=== PATIENT | female | born 1995 | race Caucasian/White ===

== ENCOUNTER → 2017-06-17 17:00 | Outpatient (CLI) | payer MEDICAID, SELFPAY ==
[2017-06-17 20:17] LABS: Group B Strep DNA By PCR POSITIVE (Negative); Probe Check PASS
== END ==
PROVIDERS: Visit Provider Obstetrics & Gynecology
DX: Z36.85 Encounter for antenatal screening for Streptococcus B (principal)
CPT/HCPCS: 87653

== ENCOUNTER → 2017-08-17 11:30 | Outpatient (CLI) | payer MEDICAID, SELFPAY ==
[2017-08-19 17:20] LABS: HPV Reflexed? NOT INDICATED
== END ==
PROVIDERS: Family Provider Family Medicine; PCP Family Medicine; Visit Provider Obstetrics & Gynecology
DX: Z12.4 Encounter for screening for malignant neoplasm of cervix (principal)
CPT/HCPCS: 88175; G0145

== ENCOUNTER 2020-03-28 22:04 | Emergency (ER) | payer OTHER, SELFPAY ==
[2020-03-28 22:05] VITALS: BP 126/52; PULSE 90; RESP 16; TEMP 36.6; O2SAT 95; BMI 20.9
--- NOTE | 2020-03-28 22:23 | ED.DCSUM_ITS ---
History of Present Illness Chief Complaint: Shortness of Breath Informant: Patient Onset: Days Context: Sudden Onset Timing: Continuous, Waxes and wanes Quality: Midsternal chest discomfort and wheezing/shortness of breath Location: Cardiac and respiratory Current Severity: Mild Maximum Severity: Moderate Worsened by: Activity Makes the shortness of breath worse Relieved by: Nothing Associated Symptoms: Mucous nasal drainage and cough productive of white-colored sputum Narrative: Patient is a 25-year-old woman who recently started work as an [employer]. She presents with nasal congestion, mucus drainage, productive cough of white- colored sputum and wheezing. She also reports shortness of breath. She does report midsternal chest pain described as pain. There is no radiation. Is no associated symptoms. There is no alleviating or exacerbating factors. There is no history of VTE. She denies leg pain, swelling discoloration. She denies rash. She denies GI symptoms. She denies headache. She denies visual, ocular auditory symptoms. Prior similar symptoms: No Recent Illness/Hospitalization: No - Past Medical History (1) History of bronchospasm Status: Resolved Past Medical History - Allergies and Home Meds Allergies/Adverse Reactions: Allergies Penicillins [PCN] Adverse Reaction (Verified 03/28/20 22:08) [facility] Primary Care Physician: Raphael Melgar DO [COURTESY STAFF PHYSICIAN] - Prior records reviewed: Yes Surgical History: no surgical history Lives: With Family Smoking Status: Former smoker Alcohol: None Drugs: None Review of Systems General: Denies: Chills, Fever, Malaise, Sweats Eyes: Denies: Visual changes - bilaterally, Blurred Vision - bilaterally ENT: Reports: Rhinorrhea, - - No change or loss of taste or smell. Denies: Bilateral ear pain, Sore throat Cardiovascular: Reports: Chest pain. Denies: Palpitations, Heart racing Respiratory: Reports: Dyspnea, Cough, Sputum, - - Patient reports wheezing. Denies: Dyspnea on exertion, Orthopnea, Paroxysmal nocturnal dyspnea Gastrointestinal: Denies: Abdominal pain, Nausea, Vomiting, Diarrhea, Melena, Hematochezia Genitourinary: Denies: Dysuria, Hematuria, Frequency Musculoskeletal: Denies: Myalgias, Arthralgias, Neck pain, Back pain, Swelling, Extremity Pain, -, - Skin: Denies: Rash, Wounds Neurological: Denies: Headache, Weakness, Parasthesia, Numbness Hematologic: Denies: Easy bruising, Easy bleeding Allergy: Denies: Uticaria Physical Exam Vital Signs/Narrative: Vital Signs Temp Pulse Resp BP Pulse Ox 03/28/20 22:05 97.8 F 90 16 126/52 H 95 Inital Vital Signs reviewed: Yes General: Well nourished, Well developed, Obese, No Acute Distress Head: Normocephalic, Atraumatic Eyes: Perrl, EOMI. Negative for: Pale conjunctiva, Scleral icterus Neck: Supple, Nontender, No lymphadenopathy, No JVD Cardiovascular: Regular rate, Regular rhythm, No murmurs, Normal S1, Normal S2 Respiratory: No distress, Chest nontender, Wheezing, - - There is increased expiratory phase.. Negative for: CTA bilaterally Back: Nontender, Normal Inspection Extremities: Nontender, No edema Skin: Normal color, No rash Neurological: Alert, Oriented x3, Cranial nerves II-XII grossly intact, Normal Strength, Normal Sensation Psychological: Normal affect, Normal Mood Diagnostic/Tx/Re-eval Chest X-Ray - ED: 1 View, Read by ED Physician, Normal, Heart, Lungs, Mediastinum, Bony Structures, No Acute Disease, - - X-ray was interpreted by me at 2258. 03/28/20 22:21 Chest 1 View (Portable) [RAD] Stat - Medical Decision Making Patient presents with viral upper respiratory symptoms. This may represent, cold, rhinovirus, COVID-19 and possibly allergies. Chest x-ray was obtained and she was instructed on the use of a metered-dose inhaler. She received 6 puffs. She was tested for COVID-19. Patient was reassessed at 2325. She states she feels better. She no longer has wheezing. She was informed that her chest x-ray was interpreted by me as negative. She has symptoms with a viral infection. She was discharged with MDI and appropriate home-going instructions ED Disposition - Plan for ED Patient: Disposition: Home or Assisted Living Diagnosis: Acute bronchitis with bronchospasm, Suspected COVID-19 virus infection Instructions: ED Upper Resp Infec No Abx Tx Referrals: Raphael Melgar DO [COURTESY STAFF PHYSICIAN] - Additional Instructions: 2 puffs of inhaler every 2-4 hours while awake for the next 2 to 3 days then every 4-6 hours as needed for wheezing Self quarantine until you receive your Covid test results.
[2020-03-28 22:47] VITALS: PULSE 81; RESP 16; O2SAT 97
--- NOTE | 2020-03-28 22:50 | RAD_ITS ---
STUDY: X-RAY CHEST REASON FOR EXAM: Female, 25 years old. SOB/ chest tightness x 3 days. wheezy when walking. TECHNIQUE: Single AP portable view of the chest. COMPARISON: None. FINDINGS: There are no confluent pulmonary infiltrates. There is no demonstrated pleural abnormality. Normal size heart. Normal mediastinum and maura. Normal visualized aortic arch and descending thoracic aorta. There are no demonstrated acute fractures or destructive bone lesions. There is no demonstrated abnormality of the visualized soft tissue structures of the upper abdomen. RAD/Chest 1 View (Portable) IMPRESSION: Normal x-ray examination of the chest. Electronically Signed: Gerry Shelton MD at 0:23 EST , Service support ,
[2020-03-29 00:05] VITALS: PULSE 90; RESP 20; O2SAT 99
== END 2020-03-29 00:33 | disposition home or self-care (01) ==
PROVIDERS: Emergency Provider Emergency Medicine
DX: J20.9 Acute bronchitis, unspecified (principal); E66.9 Obesity, unspecified; Z68.20 Body mass index [BMI] 20.0-20.9, adult; Z87.891 Personal history of nicotine dependence
CPT/HCPCS: 71045; 87635; 99283; U0003

== ENCOUNTER → 2020-11-05 10:17 | Outpatient (CLI) | payer OTHER, SELFPAY ==
[2020-11-05 09:06] VITALS: BMI 29.4
[2020-11-05 11:45] LABS: Absolute Lymphocyte Count 1.25 X10^3/uL (0.83-4.51); Absolute Neutrophil Count 3.2 X10^3/uL (2.0-7.7); Basophil# 0.01 X10^3/uL; Basophil% 0.2 % (0-1); Eosinophil# 0.39 X10^3/uL; Eosinophils% 7.1 % (0-5); Hematocrit 39.5 % (37-47); Hemoglobin 13.1 g/dL (12.0-15.0); Lymphocyte # 1.25 X10^3/ul (0.83-4.51); Lymphocyte % 22.9 % (19-41); Mean Corp Hgb Conc 33.2 g/dL (32-36); Mean Corpuscular Hgb 29.8 pg (27.0-32.0); Mean Platelet Vol. 10.8 fl (6.2-12.0); Monocyte# 0.59 X10^3/uL; Monocyte% 10.8 % (0-10); NRBC Flagged by Analyzer 0 % (0-5); Neutrophil % 58.6 % (47-70); Platelet Count 236 K/mm3 (150-450); RBC Distribution Width CV 12.3 % (11.6-14.6); RBC Distribution Width SD 40.3 fl (35.1-43.9); Red Blood Count 4.39 M/mm3 (4.2-5.4); White Blood Count 5.5 K/mm3 (4.4-11.0)
[2020-11-05 12:12] LABS: Glucose Challenge Gest 1H 50g 68 mg/dL (70-140)
[2020-11-05 12:58] LABS: HIV - WCH Non-Reactive (Nonreactive); Hepatitis B Surface Antigen Non-Reactive (Nonreactive); Hepatitis C Antibody Non-Reactive (Nonreactive); Rubella IgG Reactive (Nonreactive); Syphilis Antibodies Non-reactive
[2020-11-05 13:59] LABS: Amphetamine Urine VISTA NEGATIVE (<1000 ng/mL); Barbiturate Urine VISTA NEGATIVE (< 200 ng/mL); Benzodiazepine Urine VISTA NEGATIVE (< 200 ng/mL); Cocaine Urine VISTA NEGATIVE (< 300 ng/mL); Ecstacy Urine VISTA NEGATIVE (< 500 ng/mL); Methadone Urine VISTA NEGATIVE (< 300 ng/mL); PCP Urine VISTA NEGATIVE (< 25 ng/mL); THC Urine VISTA NEGATIVE (< 50 ng/mL); Vista UDS pH Range 5
[2020-11-06 20:08] LABS: Chlamydia By Nucleic Acid AMP Positive (Negative)
[2020-11-06 22:47] LABS: Gonococcus By Nucleic Acid AMP Negative (Negative)
[2020-11-10 14:35] LABS: HPV Reflexed? NOT INDICATED
== END ==
LOC: PAVLAB 10:18 → LAB 10:33
PROVIDERS: Referring Provider Obstetrics & Gynecology; Visit Provider Obstetrics & Gynecology
DX: Z34.80 Encounter for supervision of other normal pregnancy, unspecified trimester (principal); Z12.4 Encounter for screening for malignant neoplasm of cervix
CPT/HCPCS: 36415; 80307; 82950; 85025; 86703; 86762; 86780; 86803; 86850; 86900; 86901; 87077; 87086; 87088; 87186; 87340; 87491; 87591; 88175; G0145

== ENCOUNTER → 2020-12-15 | Outpatient (CLI) | payer OTHER, SELFPAY ==
[2020-12-15 09:18] VITALS: BMI 36.6
[2020-12-15 11:44] LABS: Chlamydia Trachomatis by PCR Negative (Negative); Neisserai gonorrhoeae by PCR Negative (Negative); Probe Check PASS; Sample Adequacy Control PASS; Specimen Processing Control PASS
== END | disposition home or self-care (01) ==
PROVIDERS: Referring Provider Obstetrics & Gynecology; Visit Provider Obstetrics & Gynecology
DX: A74.9 Chlamydial infection, unspecified (principal)
CPT/HCPCS: 87491; 87591

== ENCOUNTER → 2021-03-18 09:20 | Outpatient (CLI) | payer MEDICAID, SELFPAY ==
[2021-03-18 09:44] LABS: Absolute Lymphocyte Count 1.58 X10^3/uL (0.83-4.51); Absolute Neutrophil Count 6.3 X10^3/uL (2.0-7.7); Basophil# 0.01 X10^3/uL; Basophil% 0.1 % (0-1); Eosinophil# 0.07 X10^3/uL; Eosinophils% 0.8 % (0-5); Hematocrit 32.7 % (37-47); Lymphocyte # 1.58 X10^3/ul (0.83-4.51); Lymphocyte % 18.5 % (19-41); Mean Corp Hgb Conc 33.6 g/dL (32-36); Mean Corpuscular Hgb 30.7 pg (27.0-32.0); Mean Corpuscular Volume 91.3 fL (81-99); Mean Platelet Vol. 11.4 fl (6.2-12.0); Monocyte# 0.51 X10^3/uL; NRBC Flagged by Analyzer 0 % (0-5); Neutrophil # 6.34 X10^3/uL (2.7-7.7); Neutrophil % 74.1 % (47-70); Platelet Count 162 K/mm3 (150-450); RBC Distribution Width CV 13.1 % (11.6-14.6); RBC Distribution Width SD 43.7 fl (35.1-43.9); Red Blood Count 3.58 M/mm3 (4.2-5.4); White Blood Count 8.6 K/mm3 (4.4-11.0)
[2021-03-18 10:16] LABS: Glucose Challenge Gest 1H 50g 157 mg/dL (70-140)
== END ==
PROVIDERS: Referring Provider Obstetrics & Gynecology; Visit Provider Obstetrics & Gynecology
DX: Z34.80 Encounter for supervision of other normal pregnancy, unspecified trimester (principal)
CPT/HCPCS: 36415; 82950; 85025

== ENCOUNTER → 2021-03-23 09:49 | Outpatient (CLI) | payer MEDICAID, SELFPAY ==
[2021-03-23 12:27] LABS: Glucose GTT-Gestation. Fasting 78 mg/dL (<105)
[2021-03-23 12:27] LABS: Glucose GTT-Gestational 1 Hr 184 mg/dL (<190)
[2021-03-23 13:46] LABS: Glucose GTT-Gestational 2 Hr 105 mg/dL (<165)
[2021-03-23 14:48] LABS: Glucose GTT-Gestational 3 Hr 60 L (<145)
== END ==
PROVIDERS: Referring Provider Nurse Practitioner Women's Health; Visit Provider Nurse Practitioner Women's Health
DX: Z13.1 Encounter for screening for diabetes mellitus (principal)
CPT/HCPCS: 36415; 82951; 82952

== ENCOUNTER → 2021-05-12 | Outpatient (CLI) | payer MEDICAID, SELFPAY ==
[2021-05-13 22:06] LABS: Chlamydia By Nucleic Acid AMP Negative (Negative)
[2021-05-14 10:15] LABS: Gonococcus By Nucleic Acid AMP Negative (Negative)
== END | disposition home or self-care (01) ==
LOC: LABSPEC 12:05
PROVIDERS: Referring Provider Nurse Practitioner Women's Health; Visit Provider Nurse Practitioner Women's Health
DX: O98.813 Other maternal infectious and parasitic diseases complicating pregnancy, third trimester (principal); Z3A.36 36 weeks gestation of pregnancy
CPT/HCPCS: 87077; 87081; 87186; 87491; 87591

== ENCOUNTER 2021-06-05 12:12 | Outpatient (CLI) | payer MEDICAID, SELFPAY | END 2021-06-05 23:59 | disposition short-term general hospital (02) | PROVIDERS: Visit Provider Obstetrics & Gynecology | DX: Z34.93 Encounter for supervision of normal pregnancy, unspecified, third trimester (principal) | CPT/HCPCS: 87635; U0003; U0005 ==

== ENCOUNTER 2021-06-09 14:18 | Outpatient (CLI) | payer MEDICAID, SELFPAY ==
--- NOTE | 2021-06-09 14:20 | US_ITS ---
STUDY: SECOND AND THIRD TRIMESTER OBSTETRICAL ULTRASOUND REASON FOR EXAM: Female, 26 years old growth, post dates LMP: 08/28/2020. TECHNIQUE: Transabdominal TECHNICAL QUALITY: Adequate. PRIOR ULTRASOUND: None. FINDINGS: There is a single intrauterine fetus. The fetus is in a cephalic presentation. There is demonstrated cardiac activity with a heart rate of 164 bpm. There is a normal amniotic fluid volume. The largest amniotic fluid pocket measures 3.6 cm. The amniotic fluid index (SABIHA) is 9.3 cm. The placenta is fundal in location. There are Grade 2 placental changes. The cervix was not measured due to the head position. The adnexal regions are not visualized. BIOMETRY: BPD: 9.62 cm: 39 weeks, 2 days HC: 34.58 cm: 40 weeks, 0 days AC: 37.87 cm: 41 weeks, 5 days FL: 7.14 cm: 36 weeks, 4 days CI: 83% FL/BPD: 74% FL/HC: FL/AC: 19% HC/AC: 0.91 age by current US: 39 weeks, 2 days. MENDOZA by current US: 06/14/2021. Estimated weight: 4066 grams, +/- 610 grams, not on the charts Age by LMP: 40 weeks, 5 days. MENDOZA by LMP: . US/OB Limited With Biometrics IMPRESSION: Live intrauterine gestation with a mean gestational age of 39 weeks and 2 days. Electronically Signed: Jc Vazquez MD at 15:12 EST ,
== END 2021-06-09 23:59 | disposition short-term general hospital (02) ==
LOC: OPUS 14:19
PROVIDERS: Referring Provider Obstetrics & Gynecology; Visit Provider Obstetrics & Gynecology
DX: O48.0 Post-term pregnancy (principal); Z3A.40 40 weeks gestation of pregnancy
CPT/HCPCS: 76816

== ENCOUNTER 2021-06-11 07:00 | Inpatient (IN) | payer MEDICAID, SELFPAY ==
[2021-06-11] VITALS (65 sets, daily range): BP systolic 98–141; BP diastolic 54–76; PULSE 74–114; TEMP 35.8–36.8; O2SAT 90–100; BMI 39.9
--- NOTE | 2021-06-11 07:31 | PCM.RX.CS ---
Consult Type of Consult: New start Suspected Infection: Other Goal Trough: 10-15 mcg/mL Pharmacy Plan for Drug Dosing: NEW START IV VANCOMYCIN Consulting Physician: Dr. Eastman Indication: WP GBS Goal Trough: 10-15 SrCr: N/A CrCl: N/A Comments: Vancomcyin Dose: 2000mg (20 mg/kg) Q8H to start at 0730 06/11/21 Pending Level: Vancomycin trough @ 0700 06/12/21 if pt remains on Vancomycin Pharmacy Service will continue to monitor and adjust dosing as required. Labs to be done on [date and time ordered]: Vancomycin trough @ 0700 06/12/21 if pt remains on Vancomycin
[2021-06-11] MEDS: Lactated Ringers 1,000 ML 50 ML IV (07:35)
[2021-06-11] MEDS: 0.9% Normal Saline Single 100 ML IV.SOLN. INTRA-UTER (07:40)
[2021-06-11 07:55] LABS: Absolute Lymphocyte Count 1.99 X10^3/uL (0.83-4.51); Absolute Neutrophil Count 5.1 X10^3/uL (2.0-7.7); Basophil# 0.02 X10^3/uL; Basophil% 0.3 % (0-1); Eosinophil# 0.07 X10^3/uL; Eosinophils% 0.9 % (0-5); Hematocrit 29.6 % (37-47); Hemoglobin 9.6 g/dL (12.0-15.0); Lymphocyte # 1.99 X10^3/ul (0.83-4.51); Lymphocyte % 25.3 % (19-41); Mean Corp Hgb Conc 32.4 g/dL (32-36); Mean Corpuscular Hgb 28.3 pg (27.0-32.0); Mean Corpuscular Volume 87.3 fL (81-99); Mean Platelet Vol. 11.6 fl (6.2-12.0); Monocyte# 0.65 X10^3/uL; Monocyte% 8.3 % (0-10); NRBC Flagged by Analyzer 0 % (0-5); Neutrophil # 5.09 X10^3/uL (2.7-7.7); Neutrophil % 64.7 % (47-70); Platelet Count 173 K/mm3 (150-450); RBC Distribution Width CV 13.3 % (11.6-14.6); RBC Distribution Width SD 42.4 fl (35.1-43.9); Red Blood Count 3.39 M/mm3 (4.2-5.4); White Blood Count 7.9 K/mm3 (4.4-11.0)
--- NOTE | 2021-06-11 07:57 | HP.PCM.OB_ITS ---
HPI - General General Date of Admission: 06/11/21 HPI Narrative PREM BLACKWOOD, is a 26 y/o @ 41 weeks 0 days who presents to l&D for IOL due to post dates and h/o rapid labor. Her last delivery happened in the Ambulance. She is GBS positive and allergic to pcn. Maternal Data Information MENDOZA Calculator Estimated Delivery Date Method Current WG Current Estimate 06/04/21 LMP (Certain) 41w 0d Other Estimates 06/07/21 Ultrasound #1 40w 4d PFSH PFSH Medical History Anxiety Chlamydia Home Medications prenat.vits,carolina,[id number]-aphmr 1 tab PO DAILY 10/20/20 [History Last Taken Unknown] famotidine [Pepcid] 20 mg PO DAILY 06/11/21 [History Last Taken 06/10/21 19:00] Allergy/AdvReac Type Severity Reaction Status Date / Time Penicillins [PCN] AdvReac Hives Verified 06/11/21 07:55 Family History Grandmother Diabetes Aunt Diabetes Mother Asthma Social History adopted: No household members: significant other number of children: 2 current occupational status: employed current occupation: [employer] pets and animals: No Smoking Status: Never smoker alcohol intake: current details: not while substance use type: does not use caffeine: Yes what type of physical activity do you participate in: walking seatbelt use: always do you feel safe at home: Yes additional social history: works at [employer] History 3 Elective abortions Hx Para 2 Spontaneous abortions Hx # Term Pregnancies Ectopic pregnancies Hx # Pregnancies Multiple births # of living children Past Pregnancies Del. Date Name GA/Weeks Outcome Route Bth Weight Infant Gen Labor Lgth Anesthesia Del Locatn Provider FOB 10/06/15 Austynn live - full term 7# 7.5oz Female 5 hr epidural Sarah mortarman Chris Tomas 07/04/17 Silvia live - full term 7# 13 oz Female 2 hr none M aidan mortarman Chris Tomas Delivery Date: 10/06/15 No notes to display Delivery Date: 07/04/17 in squad. Delivered at hospital by OB nurse; Rina Kang Visit Details Expected Delivery Route/Plan IOL by 41 Labor Preferences- CB/BF classes: no labor support person: Cuco labor intervention preferences: none, delivers quickly pain management options preferred: epidural cut cord/dad catch: yes : no PP control planned: nexplanon discussed possible routes of delivery and associated risks: [] special requests: [] Plans flu vaccine: declines tdap vaccine:completed rhogam: na LARC form signed: yes Problem list reviewed and updated with the mo st current plan of care details and appropriate orders placed. Relevant counseling for the gestational age provided. Continue routine care and follow up unless otherwise noted in visit notes/problem list details OB Flowsheet Initial Weight: Not Recorded Date -?-?-?-?-?-?-?-?-?-?-?-?- EGA Weight BP Urine Prot -?-?-?-?-?-?-?-?-?-?-?-?- Glucose FHR FuHt Pres Dilation -?-?-?-?-?-?-?-?-?-?-?-?- Effaced St Visit Note 11/05/20 -?-?-?-?-?-?-?-?-?-?-?-?- 9w 6d 198 lb 100/78 -?-?-?-?-?-?-?-?-?-?-?-?- 168 -?-?-?-?-?-?-?-?-?-?-?-?- GP - CRL consist ent with LMP. GP - CRL 25mm consistent wit h LMP. 11/21/20 -?-?-?-?-?-?-?-?-?-?-?-?- 12w 1d 196 lb 4 oz 108/78 Nega tive -?-?-?-?-?-?-?-?-?-?-?-?- Negative 168 -?-?-?-?-?-?-?-?-?-?-?-?- GP - no cramping or bleeding. ROWAN resolved. Anatomy ordered. 12/15/20 -?-?-?-?-?-?-?-?-?-?-?-?- 15w 4d 200 lb 110/62 Negative -?-?-?-?-?-?-?-?-?-?-?-?- Negative 145 -?-?-?-?-?-?-?-?-?-?-?-?- GP - no cramping or bleeding. Anatomy not yet scheduled due to conflicts with vacation. Will not be able to do until after 02/0401/12/21 -?-?-?-?-?-?-?-?-?-?-?-?- 19w 4d 205 lb 108/71 Negative -?-?-?-?-?-?-?-?-?-?-?-?- Negative 145 -?-?-?-?-?-?-?-?-?-?-?-?- SM- no vb lof cr amping 02/06/21 -?-?-?-?-?-?-?-?-?-?-?-?- 23w 1d 207 lb 8 oz 92/70 Nega tive -?-?-?-?-?-?-?-?-?-?-?-?- Negative 140 23 -?-?-?-?-?-?-?-?-?-?-?-?- GP - no ctx, LOF , VB, DFM. Had negative experience with MFM anatomy scan. Does have growth next week for small HC 03/18/21 -?-?-?-?-?--?-?-?-?-?-?-?- 28w 6d 213 lb 6 oz 100/64 Nega tive -?-?-?-?-?-?-?-?-?-?-?-?- Negative 141 -?-?-?-?-?-?-?-?-?-?-?-?- MH-Had small jessika unt spotting on toilet tissue 2 wk ago, none since. Good FM. Has not had follow up growth US with MFM. Will schedule for her. Tdap, larc, 28 wk labs. 04/02/21 -?-?-?-?-?-?-?-?-?-?-?-?- 31w 0d 212 lb 4 oz 100/72 Trac e -?-?-?-?-?-?-?-?-?-?-?-?- Negative 136 -?-?-?-?-?-?-?-?-?-?-?-?- JV- no lof, vagi nal bleeding, or dec fm. no complaints. 04/17/21 -?-?-?-?-?-?-?-?-?-?-?-?- 33w 1d 214 lb 132/80 -?-?-?-?-?-?-?-?-?-?-?-?- 130 33 -?-?-?-?-?-?-?-?-?-?-?-?- SM- no vb lof go od fm no regular ctx 05/05/21 -?-?-?-?-?-?-?-?-?-?-?-?- 35w 5d 216 lb 2 oz 110/80 Nega tive -?-?-?-?-?-?-?-?-?-?-?-?- Negative 140 35 -?-?-?-?-?-?-?-?-?-?-?-?- JV- no lof, vagi nal bleeding, or dec fm. pt has h/o fast labor. 05/12/21 -?-?-?-?-?-?-?-?-?-?-?-?- 36w 5d 215 lb 6 oz 118/76 Nega tive -?-?-?-?-?-?-?-?-?-?-?-?- Negative 154 36 0 -?-?-?-?-?-?-?-?-?-?-?-?- MH-No VB, LOF. G ood FM. GBS and GCC collected 05/21/21 -?-?-?-?-?-?-?-?-?-?-?-?- 38w 0d 217 lb 104/80 Negative -?-?-?-?-?-?-?-?-?-?-?-?- Negative 143 37 -?-?-?-?-?-?-?-?-?-?-?-?- JV- gbs pos - pc n allergic and clinda resistant. will need vanc in labor. declines exam. labor precautions discussed 05/29/21 -?-?-?-?-?-?-?-?-?-?-?-?- 39w 1d 216 lb 6 oz 104/80 Trac e -?-?-?-?-?-?-?-?-?-?-?-?- Negative 141 39 1 -?-?-?-?-?-?-?-?-?-?-?-?- 30 -3 JV- no lof , vaginal bleeding, or dec. will try to strip membranes next visit and discuss induction as needed. 06/05/21 -?-?-?-?-?-?-?-?-?-?-?-?- 40w 1d 216 lb 4 oz 124/80 Nega tive -?-?-?-?-?-?-?-?-?-?-?-?- Negative 140 38 2 -?-?-?-?-?-?-?-?-?-?-?-?- 30 -3 SM- bedsid e SABIHA done- WNL. no vb lof good fm nor egular ctx. membranes swept, IOL at 41 weeks if not successful SM- bedside SABIHA done-9cm WNL . repeat US tuesdya. no vb lof good fm nor egular ctx. membranes swept, IOL at 41 weeks if not successful 06/11/21 -?-?-?-?-?-?-?-?-?-?-?-?- 41w 0d 218 lb 0.595 oz 112/76 -?-?-?-?-?-?-?-?-?-?-?-?- -?-?-?-?-?-?-?-?-?-?-?-?- ROS Constitutional Constitutional: Denies change in weight, fatigue, fever(s), headache(s), poor appetite or weakness Eyes Eyes: Denies blurry vision, change in vision, seeing flashes or spots in vision ENT HEENT: Denies dizziness, headache(s), loss taste/smell or sore throat Cardiovascular Cardiovascular: Denies chest pain, dizziness, dyspnea, irregular heart rhythm, leg edema, palpitations, rapid heart rate or vomiting Respiratory/Chest Respiratory/Chest: Denies chest tightness, cough, dyspnea or breast pain Gastrointestinal Gastrointestinal: Denies abdominal pain, anorexia, constipation, cramping, diarrhea, hemorrhoids, vomiting or weight changes Genitourinary Genitourinary: Denies dysuria, flank pain, genital lesions, genital pain, urinary frequency or urinary urgency Musculoskeletal Musculoskeletal: Denies back pain, difficulty walking, joint pain, limited range of motion, muscle cramps or numbness Integumentary Integumentary: Denies lesions or unusual bruising Neurologic Neurologic: Denies abnormal movements, abnormal speech, dizziness, numbness, seizure-like activity or syncope Psychiatric Psychiatric: Denies anxiety, behavioral changes, change in appetite, change in libido, cognitive impairment, confusion, depression, difficulty concentrating, hallucinations or suicidal thoughts Endocrine Endocrinology: Denies excessive sweating, polydipsia or polyuria Hematologic/Lymphatic Hematologic/Lymphatic: Denies easy bleeding, easy bruising or lymphadenopathy Allergic/Immunologic Allergic/Immunologic: Denies itchy eyes, lip swelling, seasonal rhinorrhea, rhinitis, throat swelling, tongue swelling, eczemia, wheezing or asthma Vital Signs Vital Signs Vital Signs: Weight Weight: 218 lb 0.595 oz Body Mass Index (BMI) 39.9 Physical Exam Const alert, oriented x3, no apparent distress and healthy appearing General Appearance: cooperative; Negative for anxious HEENT normocephalic Face and Sinus: normal facial exam Eyes EOMs intact bilaterally and no scleral icterus General Eye: normal appearance of both eyes Neck full ROM and supple Lymph Lymphatic: no lymphadenopathy noted Chest Chest: abnormal inspection of the chest Resp normal respiratory effort Effort and Inspection: able to speak in complete sentences Cardio regular rate GI soft to palpation and non-tender Inspection: gravid Palpation: soft; Negative for tender external exam normal Amniotic Fluid: ROM+plus Back/Spine no CVA tenderness Extremity normal to inspection, full ROM and no clubbing, cyanosis or edema General Extremity: Negative for calf tenderness or edema Skin Lesions: no lesions Rashes: no rashes Psych mental status grossly normal Labs Labs Labs: Blood Type A POSITIVE Antibody Screen NEGATIVE Hct 29.6 % (37-47) L Hgb 9.6 g/dL (12.0-15.0) L Obstetrics US Syphilis Total Ab Non-reactive Rubella IgG Antibody Reactive (Nonreactive) Hep Bs Antigen Non-Reactive (Nonreactive) Neisseria gonorrhoeae DNA (GRAZYNA) Negative (Negative) HIV 1&2 Antibody Non-Reactive (Nonreactive) C.trachomatis DNA (PCR) Negative (Negative) Glucose 1 Hr 50 gm 157 mg/dL (70-140) H Group B Strep DNA POSITIVE (Negative) H Assessment & Plan (1) Lab test negative for COVID-19 virus: (2) Positive GBS test: COMMENT: needs tx in labor- HAS PCN ALLERGY, resistant to clinda, will need vanc in labor (3) Abnormal glucose affecting : COMMENT: normal 3gtt (4) History of tetanus, diphtheria, and acellular pertussis booster vaccination (Tdap): COMMENT: 03/18/21 (5) Chlamydia: COMMENT: Treated 10/08, but vomited after tx. / negative Rpt 36 wk (6) Obesity affecting : QUALIFIERS: Trimester: third trimester Qualified Code(s): O99.213 - Obesity complicating , third trimester COMMENT: BMI 36 at NOB. Early 1h GCT ordered and nl (7) History of precipitous delivery: COMMENT: [place]:del by OB nurse; in squad (8) : QUALIFIERS: Weeks of gestation: 40 weeks Qualified Code(s): Z3A.40 - 40 weeks gestation of COMMENT: declines genetic, ntd, and carrier screening. nl anatomy. notified L&D to do tox upon induction admission (9) Supervision of other normal : COMMENT: PRR MENDOZA 06/04/21 PC : Silvia Craig BF: Cuco(his first) (10) History of bronchospasm: PLAN: Patient presents IOL, plan management for with pitocin/AROM. Pain management: plans epidural. GBS positive. Management of any complications: obesity I have reviewed the [facility] and made any clinically relevant updates.
[2021-06-11 08:29] LABS: Amphetamine Urine VISTA NEGATIVE (<1000 ng/mL); Barbiturate Urine VISTA NEGATIVE (< 200 ng/mL); Benzodiazepine Urine VISTA NEGATIVE (< 200 ng/mL); Cocaine Urine VISTA NEGATIVE (< 300 ng/mL); Ecstacy Urine VISTA NEGATIVE (< 500 ng/mL); Methadone Urine VISTA NEGATIVE (< 300 ng/mL); PCP Urine VISTA NEGATIVE (< 25 ng/mL); THC Urine VISTA NEGATIVE (< 50 ng/mL); Vista UDS pH Range 6
[2021-06-11] MEDS: Oxytocin 30 units/NS 500 ml 30 UNITS/500 ML IV.SOLN IV (08:47)
[2021-06-11] MEDS: Mag Hydrox/Al Hydrox/Simeth 30 ML UDC PO (12:18)
[2021-06-11] MEDS: 0.9% Saline Lock 10 ML Syringe IV ×3 (12:47→18:01)
--- NOTE | 2021-06-11 12:49 | PCM.PN.BLA ---
Progress Note pt is laying in bed and only complaint at this time is indigestion. The vancomycin was stopped 30 minutes premature because her face became red and arm was also showing some redness. Pt preferred not to have the medication restarted due to fear of needing benadryl. She states that the benadryl causes extreme fatigue. Per Peds, the baby will need 36 hour monitoring regardless of the amount of vanco that is infused due to insufficient treatment for GBS. Based on this information the decision was made to hold the remaining vancomycin medication and proceed with AROM and pitocin. current tracing: FHT: Moderate variability reactive no decelerations category I tracing [place]: q3-5 Contractions cx: 4/70/-1 membranes ruptured artificially and an IUPC was placed to adequately monitor contractions and titrate pitocin. Dose currently at 10 mu/min reviewed tracing abnormalities since last note: none A/P: post dates induction and h/o fast labor pt is deciding if wants an epidural anticipate this afternoon
[2021-06-11] MEDS: Lactated Ringers 500 ML 999 ML IV ×2 (13:32→14:56)
[2021-06-11] MEDS: fentaNYL-bupivacaine (epidural) 100 ML BAG EPIDURAL (15:32)
[2021-06-11] MEDS: Ondansetron 4 MG/2 ML Vial IV (18:00)
[2021-06-11] MEDS: Lactated Ringers 1,000 ML 200 ML IV (19:37)
[2021-06-11] MEDS: Oxytocin 30 units/NS 500 ml 30 UNITS/500 ML IV.SOLN 334 UNITS IV (20:12)
--- NOTE | 2021-06-11 20:17 | EX.PCM.OBRPT ---
Assessment & Plan (1) Lab test negative for COVID-19 virus: (2) Positive GBS test: COMMENT: needs tx in labor- HAS PCN ALLERGY, resistant to clinda, will need vanc in labor (3) Abnormal glucose affecting : COMMENT: normal 3gtt (4) Chlamydia: COMMENT: Treated 10/08, but vomited after tx. 12/15 negative Rpt 36 wk (5) Obesity affecting : QUALIFIERS: Trimester: third trimester Qualified Code(s): O99.213 - Obesity complicating , third trimester COMMENT: BMI 36 at NOB. Early 1h GCT ordered and nl (6) History of precipitous delivery: COMMENT: [place]:del by OB nurse; in squad (7) Supervision of other normal : COMMENT: PRR MENDOZA 06/04/21 PC : Silvia Craig BF: Cuco(his first) Maternal Data Information MENDOZA Calculator Estimated Delivery Date Method Current WG Current Estimate 06/04/21 LMP (Certain) 41w 0d Other Estimates 06/07/21 Ultrasound #1 40w 4d Vaginal Delivery Maternal Presentation Maternal Presentation: Medically Indicated Induction Type of Induction: Pitocin and Amniotomy Operative Information Date of Procedure: 06/11/21 Pre-Operative Diagnosis: @ 41 weeks gestation Post-Operative Diagnosis: @ 41 weeks gestation, h/o COVID in , H/o precip delivery Type of Anesthesia: Epidural Estimated Blood Loss: 50cc Findings Description of Procedure: Patient began pushing and delivered the head in the CHICHI presentation. The head was delivered atraumatically. The anterior and posterior shoulders delivered without complication followed by the rest of the and the infant was placed on the maternal abdomen. Delayed cord clamping was employed for approximately 60 seconds. Cord was clamped and cut and gentle traction was applied to the cord and the placenta delivered spontaneously immediately following it was noted to be intact with three-vessel cord. The perineum and vagina were inspected and noted to have no laceration. EBL was 50cc. Patient and tolerated delivery well. Presentation: Vertex and CHICHI Amniotic Membrane Rupture Type: Artificial Amniotic Fluid Description: Lightly stained meconium Placental Delivery Description: Spontaneous Placenta Disposition: [facility] Cord Vessel Description: 3 Vessels Cord Entanglement: None A Gender: Female (1 minute): 8 (5 minute): 10 Delayed Cord Clamping: Yes Post Vaginal Delivery Medications Given After Delivery: IV Pitocin Episiotomy Description: None Laceration: None Complication Complications: None Multi Select Codes Urinary/Genital Urinary/Genital CPT Codes: 93704 Vaginal Delivery Only
--- NOTE | 2021-06-11 20:23 | PCM.DC ---
Discharge Instructions Diet Discharge Diet: No restrictions Activity Discharge Activity: Return to Normal Activity, May Not Drive (while taking narcotic pain medications.) and May Shower May resume sexual activity in: 4-6 weeks Dressing / Incision Call your doctor if your incision/area has: Continuous Slow Oozing, Sudden Increased Bleeding, Increased Pain/ Swelling, Increased Redness and Foul Smelling Discharge Follow Up Care Please Follow Up With: Kymberly Mcneil DO When: Call [phone] to make an appointment with your doctor in 6 weeks. If you had elevated blood pressure or 4th degree laceration, you will need to be seen in 2 weeks. Test Results: Test results from this visit will be discussed in further detail at your follow-up appointment, if applicable. Discharge Plan Admission Admit Date/Time: 06/11/21 07:00 Primary Reason for Your Visit: vaginal delivery Attending Provider: Kymberly Mcneil Primary Care Provider: Care Physician,Anneliese Primary Discharge Orders/Prescriptions Prescriptions: New ibuprofen 800 mg tablet 800 mg PO Q8H PRN (Reason: pain) 7 Days Qty: 30 RF: 0 Continued prenat.vits,carolina,[id number] Tablet 1 tab PO DAILY RF: 0 famotidine [Pepcid] 20 mg tablet 20 mg PO DAILY RF: 0 Referrals / Follow Up: Care Physician,No Primary [Primary Care Provider] - Disposition Disposition (needs filled in before D/C Order can be placed): Home, Self Care
[2021-06-12 00:16] VITALS: BP 117/60; PULSE 98; RESP 18; TEMP 36.8
[2021-06-12 03:21] VITALS: BP 106/55; PULSE 91; RESP 14; TEMP 36.3
--- NOTE | 2021-06-12 08:19 | PCM.PN.BLA ---
Progress Note Patient doing well without complaints. Tolerating PO. Ambulating and voiding without difficulty. Feeding well. Denies chest pain, shortness of breath, calf pain/swelling, fevers, chills, lightheadedness. Physical Exam Const alert, oriented x3 and no apparent distress General Appearance: cooperative and comfortable Resp normal respiratory effort Cardio regular rate GI normal to inspection, nondistended, normoactive bowel sounds GI Narrative: uterus is firm below umbilicus Palpation: soft Bimanual Exam - Adnexa, Other: Negative for cul-de-sac fullness Back/Spine no CVA tenderness and thoraco-lumbar ROM normal Extremity normal to inspection, no clubbing, cyanosis or edema, no calf tenderness and no pedal edema Psych mental status grossly normal, thought process normal, cooperative, affect normal, speech normal, activity/motor behavior normal, denies homicidal ideation and denies suicidal ideation Assessment & Plan Assessment/Plan (1) Status post vaginal delivery: PLAN: s/p PPD # 1 1. routine post delivery care 2. breast feeding- support given 3. rh positive 4. rubella immune 5. pt was GBS pos and peds would like to keep baby x 36 hours for observation. plan to dc to home tomorrow afternoon
[2021-06-12 09:53] VITALS: BP 108/67; PULSE 93; RESP 16; TEMP 36.6; O2SAT 100
[2021-06-12] MEDS: Benzocaine/Lanolin/Aloe Vera 1 SPRAY EACH TOPICAL (09:57)
[2021-06-12] MEDS: Famotidine 20 MG Tablet PO (09:57)
[2021-06-12 13:47] VITALS: BP 99/59; PULSE 93; RESP 16; TEMP 36.3
[2021-06-12] MEDS: Acetaminophen 500 MG Tablet 1000 MG PO (15:41)
[2021-06-12] MEDS: Ibuprofen 600 MG Tablet PO (15:41)
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
[2021-06-12 18:02] VITALS: BP 113/63; PULSE 89; RESP 16; TEMP 36.3
[2021-06-12 22:00] VITALS: BP 113/74; PULSE 84; RESP 16; TEMP 36.8
--- NOTE | 2021-06-17 16:12 | CASEMGMT ---
Social Work Labor and Delivery Unit Due active involvement with MOB older children, this technical report writer called [facility] at [phone] and left message for Kaci Sarkar to call this technical report writer back with update on delivery of girl Journee. Also spoke with Meliza in the intake department who reports will email Kaci a message to call this technical report writer when able. Monitoring for meconium drug screen results. -JOSE ALBERTO Johnson, MACHINE SHOP INSPECTOR
== END 2021-06-13 11:10 | disposition home or self-care (01) | DRG 560 ==
PROVIDERS: Obstetrics & Gynecology; Admitting Provider Obstetrics & Gynecology; Referring Provider Obstetrics & Gynecology; Visit Provider Obstetrics & Gynecology
DX: O48.0 Post-term pregnancy (principal); Z37.0 Single live birth; O77.0 Labor and delivery complicated by meconium in amniotic fluid; R11.10 Vomiting, unspecified; Z3A.41 41 weeks gestation of pregnancy; O99.824 Streptococcus B carrier state complicating childbirth; O99.213 Obesity complicating pregnancy, third trimester; Z20.822 Contact with and (suspected) exposure to COVID-19; O99.214 Obesity complicating childbirth
CPT/HCPCS: 59025; 59050; 76816; 80307; 85025; 86850; 86900; 86901; 99218; J7040; J7120; A4216; G0378; J2405